=== PATIENT | female | born 1950 | race American Indian/Alaskan Native ===

== ENCOUNTER 2019-04-17 13:22 | Outpatient (CLI) | payer MEDICARE ==
--- NOTE | 2019-04-17 15:02 | XRay Report ---
AP PELVIS INDICATION: OSTEOARTHRITIS. COMPARISON: None. IMPRESSION: No acute osseous or soft tissue abnormality. Mild symmetric osteoarthritic changes ar e identified at the SI joints and lower lumbar spine. Normal articulation at both hips. Multiple calc ified uterine fibroids are noted in the pelvis with the largest measuring 5.3 cm. Signer Name: Gian Reyes Jr, MD Signed: 04/17/2019 2:58 PM Workstation Name: [id number]
--- NOTE | 2019-04-17 15:03 | XRay Report ---
CHEST 2 VIEWS INDICATION: ACUTE BRONCHITIS J44.9. COMPARISON: None FINDINGS: Support devices: None. Heart: Within normal limits. Lungs/pleura: No acute air space or interstitial disease. No pneumothorax. Additional findings: None. IMPRESSION: No acute findings. Signer Name: Gian Reyes Jr, MD Signed: 04/17/2019 2:59 PM Workstation Name: [id number]
--- NOTE | 2019-04-17 15:05 | XRay Report ---
.LUMBOSACRAL SPINE, 5 VIEWS INDICATION: OSTEOARTHRITIS. COMPARISON: None. IMPRESSION: Normal alignment. Disc space height is preserved throughout the lumbar region. There is mild to moderate facet arthropathy throughout the lumbar spine. Oblique images demonstrate no eviden ce for high-grade neural foraminal narrowing or pars defect. There are mild symmetric degenerative ch anges in the SI joints. No acute osseous or soft tissue abnormality. Calcified uterine fibroids in the pelvis are again noted. Signer Name: Gian Reyes Jr, MD Signed: 04/17/2019 3:00 PM Workstation Name: [id number]
--- NOTE | 2019-04-20 14:57 | Mammography Report ---
DIGITAL SCREENING MAMMOGRAM WITH CAD, 04/17/2019 INDICATION: Routine screening mammography. TECHNIQUE: Digital No mammographic evidence of malignancy. 2D mammography was obtained in the craniocaudal and mediolateral oblique projections. This examinati on was interpreted with the benefit of Computer-Aided Detection analysis. COMPARISON: None. FINDINGS: Breast Density: The breasts are heterogeneously dense, which may obscure small masses. There is no evidence of dominant mass, suspicious calcifications or architectural distortion in eithe r breast. IMPRESSION: No mammographic evidence of malignancy. Follow up recommendation: Routine yearly BI-RADS Category 1: Negative. A "normal" or negative report should not discourage follow up or biopsy of a clinically significant f inding. A written summary of these findings will be mailed to the patient. The patient will be entered into a mammography reporting system which will generate a reminder letter for the patient's next appointmen t at the appropriate interval. The [employer] recommends yearly mammograms starting at age 40 and continuing as l chasity as a woman is in good health. Breast MRI is recommended for women with an approximate 20-25% or greater lifetime risk of breast cancer, including women with a strong family history of breast or ova starr cancer or who have been treated for Hodgkin's disease. Signer Name: Peña Hawley MD Signed: 04/20/2019 2:52 PM Workstation Name: [id number]
== END 2019-04-17 13:23 | disposition home or self-care (01) ==
LOC: MAMMO 13:22
PROVIDERS: ATTEND Internal Medicine Allergy & Immunology
DX: Z12.31 Encounter for screening mammogram for malignant neoplasm of breast (principal); J44.9 Chronic obstructive pulmonary disease, unspecified; D25.9 Leiomyoma of uterus, unspecified; M47.898 Other spondylosis, sacral and sacrococcygeal region; I10 Essential (primary) hypertension; K21.9 Gastro-esophageal reflux disease without esophagitis
CPT/HCPCS: 71046; 72110; 72170; 77067